=== PATIENT | female | born 1940 | race Two or more races ===

== ENCOUNTER → 2019-05-06 | Outpatient (CLI) | payer MEDICARE, MEDICAID ==
[~2019-05-06] MED LIST: MORPHINE SULF(PF) 0.5MG/ML 10ML VIAL ONE
== END | disposition home or self-care (01) ==
LOC: XYW 08:17
PROVIDERS: ATTEND Internal Medicine
DX: I08.1 Rheumatic disorders of both mitral and tricuspid valves (principal); I27.20 Pulmonary hypertension, unspecified
CPT/HCPCS: 93306

== ENCOUNTER → 2019-05-12 | Outpatient (CLI) | payer MEDICARE, MEDICAID | END | disposition home or self-care (01) | LOC: XY 09:44 | PROVIDERS: ATTEND Internal Medicine | DX: I65.23 Occlusion and stenosis of bilateral carotid arteries (principal) | CPT/HCPCS: 93886 ==

== ENCOUNTER → 2019-05-31 | Outpatient (CLI) | payer MEDICARE, MEDICAID ==
[~2019-05-31] VITALS: Ht 157.5 cm; Wt 88.5 kg
[~2019-05-31] MED LIST changes: +ADENOSINE 74 MG in GIVE UN-DILUTED 0 ML IV STA; -MORPHINE SULF(PF) 0.5MG/ML 10ML VIAL ONE
[2019-05-31 10:33] VITALS: BP 174/64
== END | disposition home or self-care (01) ==
LOC: XY 08:40
PROVIDERS: ATTEND Internal Medicine
DX: R07.9 Chest pain, unspecified (principal); I10 Essential (primary) hypertension
CPT/HCPCS: 78452; 93017; A9500; J0153

== ENCOUNTER → 2019-07-26 | Outpatient (CLI) | payer MEDICARE, MEDICAID | END | disposition home or self-care (01) | LOC: XY 08:13 | PROVIDERS: ATTEND Internal Medicine | DX: M71.22 Synovial cyst of popliteal space [Baker], left knee (principal) | CPT/HCPCS: 93925 ==

== ENCOUNTER → 2019-09-29 | Outpatient (CLI) | payer MEDICARE ==
[2019-09-29 09:35] LABS: Basophils # (auto) 0 uL; Basophils % (auto) 0.6 % (0.0-2.0); Eosinophils # (auto) 0.1 uL; Hematocrit 41.2 % (36.0-46.0); Hemoglobin 14.1 g/dL (12.2-16.2); Lymphocytes # (auto) 1.2 uL; Mean Corpuscular Hemoglobin 30.1 pg (28.0-32.0); Mean Corpuscular Hgb Conc. 34.2 g/dL (32.0-36.0); Monocytes # (auto) 0.7 uL; Neutrophils # (auto) 5.2 uL; Neutrophils % (auto) 71.4 % (37.0-80.0); Platelet Count (auto) 220 10^3/uL (140-450); Red Blood Cells 4.68 10^6/uL (4.0-5.20); Red Cell Distribution Width 13.4 % (11.8-14.3); White Blood Cell 7.2 10^3/uL (4.4-10.8)
[2019-09-29 09:54] LABS: Calcium 9.1 mg/dL (8.5-10.1); Potassium 3.6 mmol/L (3.5-5.1)
[2019-09-29 09:59] LABS: BUN/Creatinine Ratio 17.1; Bilirubin, Total 0.6 mg/dL (0.2-1.0); Total Protein 7.3 g/dL (6.4-8.2)
== END | disposition home or self-care (01) ==
LOC: LAB 09:18
PROVIDERS: ATTEND Internal Medicine
DX: I10 Essential (primary) hypertension (principal); I25.10 Atherosclerotic heart disease of native coronary artery without angina pectoris; E03.9 Hypothyroidism, unspecified; E11.9 Type 2 diabetes mellitus without complications; Z68.36 Body mass index [BMI] 36.0-36.9, adult
CPT/HCPCS: 36415; 80053; 80061; 83036; 84443; 85025

== ENCOUNTER → 2020-01-03 | Outpatient (CLI) | payer MEDICARE, MEDICAID | END | disposition home or self-care (01) | LOC: Rad HDHVI 08:45 | PROVIDERS: ATTEND Internal Medicine | DX: I08.1 Rheumatic disorders of both mitral and tricuspid valves (principal); M40.46 Postural lordosis, lumbar region; I20.9 Angina pectoris, unspecified; I10 Essential (primary) hypertension; J44.9 Chronic obstructive pulmonary disease, unspecified; M43.16 Spondylolisthesis, lumbar region; I67.2 Cerebral atherosclerosis; Z90.49 Acquired absence of other specified parts of digestive tract | CPT/HCPCS: 72100; 93306 ==

== ENCOUNTER → 2020-01-24 | Outpatient (CLI) | payer MEDICARE, MEDICAID ==
[~2020-01-24] VITALS: Ht 152.4 cm; Wt 93.0 kg
[~2020-01-24] MED LIST changes: -ADENOSINE 74 MG in GIVE UN-DILUTED 0 ML IV STA; +ADENOSINE 78 MG in GIVE UN-DILUTED 0 ML IV ONE; +ADENOSINE 90 MG/30 ML INJ IV ONE
[2020-01-24 12:00] LABS: Albumin 3.7 g/dL (3.4-5.0); Potassium 3.8 mmol/L (3.5-5.1)
[2020-01-24 12:07] LABS: Free T4 (Free Thyroxine) 1.24 ng/dL (0.89-1.76)
[2020-01-24 12:09] LABS: Bilirubin, Total 0.7 mg/dL (0.2-1.0); Calcium 9.2 mg/dL (8.5-10.1); Total Protein 7.3 g/dL (6.4-8.2)
[2020-01-24 12:35] LABS: Basophils # (auto) 0 10 ^3/uL (0-0.2); Basophils % (auto) 0.3 % (0.0-2.0); Eosinophils # (auto) 0 10 ^3/uL (0-0.8); Eosinophils % (auto) 0.5 % (0.0-7.0); Hematocrit 41.5 % (36.0-46.0); Hemoglobin 13.9 g/dL (12.2-16.2); Lymphocytes # (auto) 1.3 10 ^3/uL (0.4-5.4); Lymphocytes % (auto) 13.5 % (10.0-50.0); Mean Corpuscular Hemoglobin 30.4 pg (28.0-32.0); Mean Corpuscular Hgb Conc. 33.4 g/dL (32.0-36.0); Mean Corpuscular Volume 91.1 fL (80.0-100.0); Monocytes # (auto) 0.7 10 ^3/uL (0-1.3); Monocytes % (auto) 7.3 % (0.0-12.0); Neutrophils # (auto) 7.5 10 ^3/uL (1.6-8.6); Neutrophils % (auto) 78.4 % (37.0-80.0); Nucleated Red Blood Cells % 0.1 %; Platelet Count (auto) 242 10^3/uL (140-450); Red Blood Cells 4.56 10^6/uL (4.0-5.20); Red Cell Distribution Width 13.6 % (11.8-14.3); White Blood Cell 9.6 10^3/uL (4.4-10.8)
[2020-01-24 15:49] LABS: Urine Blood Negative /uL (Negative); Urine Specific Gravity 1.012 (1.001-1.035)
== END | disposition home or self-care (01) ==
LOC: Rad HDHVI 09:33
PROVIDERS: ATTEND Internal Medicine
DX: E03.9 Hypothyroidism, unspecified (principal); K90.9 Intestinal malabsorption, unspecified; Z79.899 Other long term (current) drug therapy; D51.9 Vitamin B12 deficiency anemia, unspecified; N39.0 Urinary tract infection, site not specified; Z00.00 Encounter for general adult medical examination without abnormal findings
CPT/HCPCS: 36415; 78452; 80053; 80061; 81003; 82306; 82607; 83036; 84439; 84443; 85025; 93005; 96374; 96375; A9500; J0153

== ENCOUNTER → 2020-07-05 | Outpatient (CLI) | payer MEDICARE, MEDICAID ==
[2020-07-05 15:54] LABS: Basophils # (auto) 0 10 ^3/uL (0-0.2); Basophils % (auto) 0.4 % (0.0-2.0); Eosinophils # (auto) 0.1 10 ^3/uL (0-0.8); Eosinophils % (auto) 1.5 % (0.0-7.0); Hematocrit 41.3 % (36.0-46.0); Hemoglobin 13.8 g/dL (12.2-16.2); Lymphocytes # (auto) 1.1 10 ^3/uL (0.4-5.4); Lymphocytes % (auto) 13.1 % (10.0-50.0); Mean Corpuscular Hemoglobin 30.3 pg (28.0-32.0); Mean Corpuscular Hgb Conc. 33.4 g/dL (32.0-36.0); Mean Corpuscular Volume 90.6 fL (80.0-100.0); Monocytes # (auto) 0.7 10 ^3/uL (0-1.3); Monocytes % (auto) 8.4 % (0.0-12.0); Neutrophils # (auto) 6.6 10 ^3/uL (1.6-8.6); Neutrophils % (auto) 76.6 % (37.0-80.0); Nucleated Red Blood Cells % 0.1 %; Platelet Count (auto) 236 10^3/uL (140-450); Red Blood Cells 4.56 10^6/uL (4.0-5.20); Red Cell Distribution Width 13.7 % (11.8-14.3); White Blood Cell 8.7 10^3/uL (4.4-10.8)
[2020-07-05 16:07] LABS: Potassium 3.8 mmol/L (3.5-5.1)
[2020-07-05 16:15] LABS: Albumin 3.9 g/dL (3.4-5.0); BUN/Creatinine Ratio 23.3; Bilirubin, Total 0.6 mg/dL (0.2-1.0); Calcium 9.4 mg/dL (8.5-10.1); Total Protein 7.4 g/dL (6.4-8.2)
== END | disposition home or self-care (01) ==
LOC: LAB 11:50
PROVIDERS: ATTEND Internal Medicine
DX: I10 Essential (primary) hypertension (principal); E03.9 Hypothyroidism, unspecified; D64.9 Anemia, unspecified
CPT/HCPCS: 36415; 80053; 84443; 85025

== ENCOUNTER → 2020-09-14 | Outpatient (CLI) | payer MEDICARE, MEDICAID | END | disposition home or self-care (01) | LOC: Rad HDHVI 11:15 | PROVIDERS: ATTEND Internal Medicine Cardiovascular Disease | DX: I70.0 Atherosclerosis of aorta (principal); R06.02 Shortness of breath | CPT/HCPCS: 71046 ==

== ENCOUNTER → 2021-03-22 | Outpatient (CLI) | payer MEDICARE, MEDICAID | END | disposition home or self-care (01) | LOC: Rad HDHVI 12:55 | PROVIDERS: ATTEND Internal Medicine | DX: I70.203 Unspecified atherosclerosis of native arteries of extremities, bilateral legs (principal); I10 Essential (primary) hypertension; E78.5 Hyperlipidemia, unspecified | CPT/HCPCS: 93880; 93925 ==